=== PATIENT | female | born 1940 | race Caucasian/White ===

== ENCOUNTER 2019-11-26 19:45 | Emergency (ER) | payer MEDICARE, OTHER ==
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
--- NOTE | 2019-11-26 20:46 | CR ---
[id number] RAD/RAD Pelvis 1-2V EXAM: 2 VIEWS PELVIS. INDICATION: FALL COMPARISON: None. DISCUSSION: No acute fracture, dislocation or other osseous abnormality. [id number] degenerative changes of the hips bilaterally. IMPRESSION: 1. No acute osseous abnormalities. Nigel Govea DO 11/26/19 2044 Thank you for allowing us to participate in the care of your patient.
--- NOTE | 2019-11-26 20:48 | CR ---
[id number] RAD/RAD Thoracic Spine 2V EXAM: AP AND LATERAL LUMBAR SPINE. INDICATION: Fall. COMPARISON: No previous similar exam is available for comparison. FINDINGS: Limited evaluation secondary to patient positioning. The lower lumbar spine is not well evaluated on this study. Age-indeterminate compression deformity of the upper lumbar spine. Multilevel degenerative changes of the visualized spine including loss of disc space height, endplate osteophytosis and facet arthropathy. The pedicles are intact. IMPRESSION: LIMITED EVALUATION DESCRIBED. AGE-INDETERMINATE COMPRESSION DEFORMITY OF THE UPPER LUMBAR SPINE. ADDITIONAL CHRONIC CHANGES ABOVE. Nigel Govea DO 11/26/19 2047 Thank you for allowing us to participate in the care of your patient.
== END 2019-11-26 22:07 ==
LOC: KA.ED 19:45
DX: S32.010A Wedge compression fracture of first lumbar vertebra, initial encounter for closed fracture (principal); M54.6 Pain in thoracic spine; F03.90 Unspecified dementia, unspecified severity, without behavioral disturbance, psychotic disturbance, mood disturbance, and anxiety; W51.XXXA Accidental striking against or bumped into by another person, initial encounter; Y92.129 Unspecified place in nursing home as the place of occurrence of the external cause
CPT/HCPCS: 72070; 72170; 99283; 99283-25